=== PATIENT | female | born 1950 | race Two or more races ===

== ENCOUNTER 2017-01-24 02:54 | Emergency (ER) | payer OTHER ==
--- NOTE | 2017-01-24 02:59 | EDPHY ---
H & P Time Seen by Provider: 01/24/17 02:58 HPI/ROS: CHIEF COMPLAINT: vomiting since 7:00 p.m. anorexia since 4:00 p.m. HISTORY OF PRESENT ILLNESS: this is a 66-year-old female with known alter his colitis and several years status post cholecystectomy. She was feeling well earlier today at around 11 when she had lunch. She had no known exposure and was feeling well. By 4 pm, her typical time for the evening meal, she felt unwell and had anorexia thereby did not eat. Beginning around 7:00 p.m. she has had 5 episodes of emesis. This is nonbloody or bilious. In fact she gets some relief from the pressure ceiling that she would have the epigastrium with vomiting. Per se there has been no abdominal pain. She is able to walk well without any difficulty nor she is hunched over. There is no sensitivity to the bumps in the road. She is unaware of any fever. There has been no chills or dysuria frequency or flank pain. Travel: None Others: None Antibiotics: None Bad Food: None Bad Water: None Recent Surgery: None REVIEW OF SYSTEMS: Constitutional: No fever, no chills. Eyes: No discharge ENT: No sore throat. Cardiovascular: No chest pain, no palpitations. Respiratory: No cough, shortness of breath, or wheezing. Gastrointestinal: No abdominal pain. Genitourinary: No hematuria or frequency. Musculoskeletal: No back pain. Skin: No rashes. Neurological: No headache. 10 point ROS otherwise negative Source: Patient - Medical/Surgical History PMH: General Appearance: Alert, mild distress as she feels quite worse when he laid down for the exam in addition she has poor eye contact.. Afebrile. Normal phonation. No respiratory distress. At triage are temperature is 37-2. My exam she feels a little warm to the touch. I was able to get a temperature of 37.7, p.o. Eyes: Pupils equal and round no pallor or injection. No icterus ENT, Mouth: Mucous membranes dry. Pharynx without erythema or exudate. TM Clear. Neck: No adenopathy. Supple. No JVD. Trachea in midline. Respiratory: There are no retractions, lungs are clear to auscultation. Chest wall: Nontender to palpation. No crepitus. Cardiovascular: Regular rate and rhythm, cleared 1/6 holosystolic murmur heard best at the upper left sternal border Abdomen: Soft, with some trace tenderness in the right lower quadrant that is not reproducible, no masses, bowel sounds normal. Neurological: Ox3. No motor weakness. Sensation intact. Gait nl. Skin: Warm and dry, no rashes. Musculoskeletal: No joint swelling. Extremities: No edema. Psychiatric: Normal affect. Patient is oriented X 3 Hx Asthma: No Hx Chronic Respiratory Disease: No Hx Diabetes: No Hx Cardiac Disease: Yes Hx Renal Disease: No Hx Cirrhosis: No Hx Alcoholism: No Hx HIV/AIDS: No Hx Splenectomy or Spleen Trauma: No Other PMH: Ulcerative colitis. Cholecystectomy. PCP Lexie Marcial - Family History Significant Family History: No pertinent family hx - Social History Smoking Status: Never smoked Alcohol Use: None Drug Use: None Constitutional: Initial Vital Signs Temperature (C) 37.2 C 01/24/17 03:01 Heart Rate 94 01/24/17 03:01 Respiratory Rate 18 01/24/17 03:01 Blood Pressure 176/88 H 01/24/17 03:01 O2 Sat (%) 93 01/24/17 03:01 O2 Delivery Mode Room Air Allergies/Adverse Reactions: Penicillins Allergy (Intermediate, Verified 01/24/17 03:04) Abdominal Pain Sulfa (Sulfonamide Antibiotics) Allergy (Intermediate, Verified 01/24/17 03:04) Abdominal Pain Home Medications: Medication Instructions Recorded Losartan Potassium 01/24/17 Medical Decision Making ED Course/Re-evaluation: After the initial evaluation we initiated IV fluids with the plan for 2 L for volume depletion. She was also given 8 mg of IV Zofran. She felt quite a bit better. I had a chance re-examine her at the 1.5 L enedina as follows: Abdomen: Soft, no tenderness whatsoever. She is having a bit of a cough and clearing her throat at this point in time and expresses no abdominal pain with such. Furthermore she is much more animated and jovial, stating that she feels much better. We had discussion regarding potential contagion as at this point in time appears to be norovirus. Thereby I would suspect that she is high contagious affect recommended that she keep home today, and has a has 2 bathroom the household use only 1 for the others so as to avoid transmission. Furthermore she has expected recovery in the next 24-36 hours. Failing that she should return for reexamination Differential Diagnosis: Differential diagnosis includes, but is not limited to: Gastroenteritis, dehydration, diverticulitis, hepatitis, pancreatitis, kidney stones, ureterolithiasis, appendicitis, gastritis, mesenteric adenitis, food poisoning, bacterial dysentery. - Data Points Medications Given: Discontinued Medications Sodium Chloride (Ns) 1,000 mls @ 0 mls/hr IV EDNOW ONE; Wide Open PRN Reason: Protocol Stop: 01/24/17 03:18 Last Admin: 01/24/17 04:02 Dose: 1,000 mls Sodium Chloride (Ns) 1,000 mls @ 0 mls/hr IV EDNOW ONE; As Directed PRN Reason: Protocol Stop: 01/24/17 03:16 Last Admin: 01/24/17 03:24 Dose: 1,000 mls Ondansetron HCl (Zofran) 8 mg IVP EDNOW ONE Stop: 01/24/17 03:08 Last Admin: 01/24/17 03:24 Dose: 8 mg Departure - Departure Disposition: Home, Routine, Self-Care Clinical Impression: Acute gastroenteritis, [place] virus enteritis Condition: Good Instructions: Dehydration (ED), Acute Nausea and Vomiting (ED) Additional Instructions: For the next 12 hours it is reasonable to take clear liquids. However beginning this evening it is prudent to advance her diet slowly over the ensuing 24 hours. To the day today he may require additional doses Zofran, thus the to go home pack. However, by this evening you should not be needing any more Zofran and if so, then he should return to the ER for further evaluation. At no point she develops any abdominal pain. If so, again, he should return to the ER.
[2017-01-24 03:05] VITALS: RESP 18
[2017-01-24] MEDS ORDERED: ONDANSETRON 4 MG/2 ML VIAL IVP ONE (03:07)
[2017-01-24] MEDS ORDERED: NS 1,000 ML IV ONE ×2 (03:15→03:17)
[2017-01-24 03:31] VITALS: TEMP 99.9
[2017-01-24 05:17] VITALS: BP 159/70; PULSE 90; O2SAT 93
[2017-01-24] MEDS ORDERED: ONDANSETRON 4MG PREPACK#2 BTL TAKEHOME ONE (05:17)
== END 2017-01-24 06:00 | disposition home or self-care (01) ==
LOC: CED 02:54
DX: A08.11 Acute gastroenteropathy due to Norwalk agent (principal); E86.9 Volume depletion, unspecified
CPT/HCPCS: 96374; J2405

== ENCOUNTER 2017-08-19 17:20 | Emergency (ER) | payer OTHER ==
[2017-08-19] MEDS ORDERED: PROPARACAINE 0.5% 15 ML OPHT DROP OP ONE (17:24)
[2017-08-19 17:38] VITALS: BP 161/62
--- NOTE | 2017-08-19 17:47 | EDPHY ---
H & P Time Seen by Provider: 08/19/17 17:36 HPI/ROS: CHIEF COMPLAINT: Foreign body sensation right eye HISTORY OF PRESENT ILLNESS: Patient was outside this afternoon in the wind blew something in her right eye, she feels a foreign body sensation superior and lateral to the pupil. No discharge from the eye, no severe eye pain REVIEW OF SYSTEMS: Slight blurriness decrease in vision PAST MEDICAL HISTORY: Ulcerative colitis, cholecystectomy Social history: Nonsmoker General Appearance: Alert, no distress. Visual acuity: noted from nursing notes. 20/40 right, 20/20 left, 20/20 both. Lids and Lashes: No edema, no stye, no erythema. Conjunctivae: Not injected, no exudate. Sclera: No subconjunctival hemorrhage, no icterus. Pupils: Equal and round, normally reactive. Corneas: Right examined with fluoroscein, uptake seen with slitlamp superior to the pupil 1-2 mm abrasion. Negative Alyson test with fluoroscein. No foreign body on surface of cornea. Anterior chamber: normal, no hyphema or hypopyon. External: No proptosis, no periorbital swelling or redness or tenderness. Extraocular motion intact. Emergency Department course/MDM: Patient does not have evidence of globe perforation or corneal ulcer or foreign body on the surface. 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 Abrasion seen on the right side. Symptoms resolved with proparacaine eyedrops applied. Smoking Status: Never smoked Constitutional: Initial Vital Signs Temperature (C) 36.6 C 08/19/17 17:36 Heart Rate 67 08/19/17 17:36 Respiratory Rate 18 08/19/17 17:36 Blood Pressure 161/62 H 08/19/17 17:36 O2 Sat (%) 96 08/19/17 17:36 O2 Delivery Mode Room Air Allergies/Adverse Reactions: Penicillins Allergy (Intermediate, Verified 01/24/17 03:04) Abdominal Pain Sulfa (Sulfonamide Antibiotics) Allergy (Intermediate, Verified 01/24/17 03:04) Abdominal Pain Home Medications: Medication Instructions Recorded Losartan Potassium 01/24/17 Tobramycin 0.3% [Tobrex 0.3% opht 1 drops Q4 3 Days #1 opht.btl 08/19/17 drops (*)] MDM/Departure - MDM Medications Given: Discontinued Medications Proparacaine HCl (Alcaine 0.5%) 1 drops OP EDNOW ONE Stop: 08/19/17 17:25 Last Admin: 08/19/17 17:45 Dose: 1 btl - Depart Disposition: Home, Routine, Self-Care Clinical Impression: Corneal abrasion, right Qualifiers: Encounter type: initial encounter Qualified Code(s): S05.01XA - Injury of conjunctiva and corneal abrasion without foreign body, right eye, initial encounter Condition: Good Instructions: Corneal Abrasion (ED) Additional Instructions: Please follow-up with your eye doctor in 48 hr check for healing. Return to emergency or see eye doctor immediately for any increase in eye pain, drainage from the eye, or any decrease in vision. Prescriptions: Tobramycin 0.3% [Tobrex 0.3% opht drops (*)] 1 drops Q4 3 Days #1 opht.btl Referrals: TIGRE ANTOINE [Primary Care Provider] - As per Instructions Davi Sousa MD [Medical Doctor] - 2-3 days, call for appt.
== END 2017-08-19 17:54 | disposition home or self-care (01) ==
LOC: CED 17:20
DX: S05.01XA Injury of conjunctiva and corneal abrasion without foreign body, right eye, initial encounter (principal); X58.XXXA Exposure to other specified factors, initial encounter

== ENCOUNTER → 2017-09-15 | Outpatient (CLI) | payer OTHER | LOC: CIMAGING 10:38 | PROVIDERS: ATTEND Family Medicine | DX: Z12.31 Encounter for screening mammogram for malignant neoplasm of breast (principal) ==

== ENCOUNTER 2018-04-15 13:54 | Emergency (ER) | payer OTHER ==
[2018-04-15] MEDS ORDERED: RANITIDINE 50 MG/2 ML VIAL IVP ONE (14:06)
[2018-04-15] MEDS ORDERED: NS 500 ML IV ONE (14:06)
[2018-04-15] MEDS ORDERED: methylPREDNISolone SOD SUCC 125 MG/2 ML VIAL IVP ONE (14:06)
--- NOTE | 2018-04-15 14:29 | EDPHY ---
H & P Smoking Status: Never smoked Time Seen by Provider: 04/15/18 14:06 HPI/ROS: HPI Possible allergic reaction. 67-year-old female by private vehicle. This patient reports that she ate a prepackaged TV dinner which consisted of lemon grass chicken that had some saffron in it. She reports that about 0.5 hr after she ate this she started feeling a sensation of lightheadedness and tingling/numbness around her lips and nose and tongue as well as a sensation of mild swelling to these areas. She is feeling better now. But states that the sensations come on in waves. She denies any voice changes. No difficulty breathing. She does complain of having a very dry mouth and a sensation of dryness in her throat. No chest pain. 2:30 p.m., the patient's is now in the room. She states that she took a cannabinoid product which she describes as a liquid which she got online with lunch at approximately 12:30 p.m.. She reports this is a new bottle of this substance. She reports that she has had it in the past and has not had this reaction. ROS: Constitutional: No fever, no chills. As above. Eyes: No discharge. No changes in vision. ENT: No sore throat. No nasal congestion or rhinorrhea. As above. Respiratory: No cough. No shortness of breath. Cardiac: No chest pain, no palpitations. Gastrointestinal: No abdominal pain, no vomiting, no diarrhea. Genitourinary: No hematuria. No dysuria or increased frequency with urination. Musculoskeletal: No back pain. No neck pain. No myalgias or arthralgias. Skin: No rashes. Neurological: No headache. No focal weakness or altered sensation except noted. Past medical history: Ulcerative colitis, cholecystectomy, hypertension. She does take losartan. Her primary care physician is Dr. Yesenia Marcial. Social history: Nonsmoker. Denies alcohol. Here by herself. Physical Exam: General Appearance: Alert, pleasant, jovial, she is not in distress. This patient is responding to questions appropriately and in full sentences. This patient appears well-hydrated and well-nourished. Eyes: Pupils equal and round no pallor or injection. No lid edema, erythema or injection. ENT, Mouth: Mucous membranes are moist. The pharyngeal tissues are unremarkable. No edema or swelling. No asymmetry suggestive of abscess. No erythema or exudates. No stridor on auscultation of her neck. No voice changes. No appreciable swelling noted of the lips, and tongue. No facial swelling noted. Respiratory: There are no retractions, lungs are clear to auscultation with good air movement bilaterally. No wheezing. No tachypnea. Cardiovascular: Regular rate and rhythm. No murmur. Neurological: Motor sensory function is grossly intact. Cranial nerves are normal. Gait is normal. Skin: Warm and dry, no rashes. Musculoskeletal: Neck is supple and nontender. Extremities are symmetrical. All joints range without pain or impingement. Psychiatric: No agitation. No depression. Database: EKG: EKG time is 2:27 p.m.; EKG shows a narrow complex normal sinus rhythm with a ventricular rate of 97. The [place], QRS, QT intervals are within normal limits. There are no ST-T wave changes indicative of ischemic or injury pattern. No evidence of right heart strain. Interpreted by me. Imaging: Procedures: Emergency department course: She was hypertensive in triage. Mildly tachypneic. Vital signs are otherwise normal. Her presentation and history are more consistent with an allergic reaction. On re-evaluation at 2:25 p.m. Her blood pressure is 182/71. Pulse oximetry 98% on room air. IV was established. EKG obtained. She was given 50 mg of ranitidine and 125 mg of IV Solu-Medrol. 2:30 p.m., the patient's is now in the room. She states that she took a cannabinoid product which she describes as a liquid mixed with apple cider vinegar and redding juice which she got online with lunch at approximately 12:30 p.m.. She reports this is a new bottle of this substance. She reports that she has had it in the past, most recently in March, and has not had this reaction. My thought now is that her presentation is more consistent with a cannabinoid product reaction, considering her dry mouth and anxiety etc. 3:00 p.m., we are awaiting her to return with this cannabinoid product that she took. She is currently resting comfortably. Care was turned over to Dr. Paris Hidalgo at this time. Differential Diagnosis: The differential diagnosis on this patient includes but is not limited to allergic reaction, panic attack reaction to cannabinoid product. CVA, acute coronary syndrome unlikely. This represents a partial list of diagnoses considered. These considerations are based on history, physical exam, past history, reassessment and diagnostic testing. (Fercho Ingram) Constitutional: Initial Vital Signs Temperature (C) 36.6 C 04/15/18 14:01 Heart Rate 96 04/15/18 14:01 Respiratory Rate 25 H 04/15/18 14:01 Blood Pressure 194/72 H 04/15/18 14:01 O2 Sat (%) 98 04/15/18 14:01 O2 Delivery Mode Room Air O2 (L/minute) 2 Allergies/Adverse Reactions: Penicillins Allergy (Intermediate, Verified 04/15/18 14:01) Abdominal Pain Sulfa (Sulfonamide Antibiotics) Allergy (Intermediate, Verified 04/15/18 14:01) Abdominal Pain Home Medications: Medication Instructions Recorded Losartan Potassium 01/24/17 Medical Decision Making ED Course/Re-evaluation: Accepted care of patient at end of Dr. Ingram's shift. Plan is for period of observation to see if symptoms resolve. Current working diagnosis is reaction to CBD oil. Less likely allergic reaction. 3:30 p.m. re-evaluated patient, taking p.o., no current complaints, heart rate 89. 4:05 p.m. re-evaluation, patient feels"flu-like"flu swab obtained and is negative. 4:45 pm patient ambulatory with steady gait without new complaints. States she feels better and comfortable with going home. Return precautions discussed in detail. Also recommended follow-up with primary care physician next week for blood pressure recheck as has been consistently high in the emergency department. Patient voices understanding. Stable for discharge. (Aracely Hidalgo) - Data Points Laboratory Results: 04/15/18 04/15/18 04/15/18 15:03 14:41 14:23 POC Hgb 13.9 gm/dL gm/dL (12.6-16.3) POC Hct 41 % % (38-47) POC Sodium 138 mEq/L mEq/L 142 mEq/L mEq/L (135-145) (135-145) POC Potassium 3.3 mEq/L mEq/L 3.0 mEq/L L mEq/L (3.3-5.0) (3.3-5.0) POC Chloride 102 mEq/L mEq/L 100.0 mEq/L mEq/L (97-110) (97-110) POC Total CO2 24 mEq/L mEq/L (22-31) POC BUN 17 mg/dL mg/dL 14 mg/dL mg/dL (7-23) (7-23) POC Creatinine 0.7 mg/dL mg/dL 0.8 mg/dL mg/dL (0.6-1.0) (0.6-1.0) POC Glucose 220 mg/dL H mg/dL 211 mg/dL H mg/dL (70-100) (70-100) POC Calcium 9.7 mg/dL mg/dL (8.5-10.4) POC Troponin I 0.00 ng/mL ng/mL (0.00-0.08) Medications Given: Discontinued Medications Sodium Chloride (Ns) 500 mls @ 0 mls/hr IV ONCE ONE; Wide Open PRN Reason: Protocol Stop: 04/15/18 14:07 Last Admin: 04/15/18 14:23 Dose: 500 mls Methylprednisolone Sodium Succinate (Solu-Medrol) 125 mg IVP EDNOW ONE Stop: 04/15/18 14:07 Last Admin: 04/15/18 14:21 Dose: 125 mg Ranitidine HCl (Zantac) 50 mg IVP EDNOW ONE Stop: 04/15/18 14:07 Last Admin: 04/15/18 14:23 Dose: 50 mg Point of Care Test Results: CBC CBC Collection Date 04/15/18 CBC Collection Time 14:22 WBC 9.9 RBC 4.11 HGB 13.2 HCT 38.8 PLT 258 Neut # 4.5 Neut 46.0 LYMPH # 4.7 LYMPH 47.4 Other WBC # 0.7 Other WBC 6.6 MCV 94.4 Chemistry 04/15/18 04/15/18 04/15/18 15:03 14:41 14:23 POC Sodium 138 mEq/L mEq/L 142 mEq/L mEq/L (135-145) (135-145) POC Potassium 3.3 mEq/L mEq/L 3.0 mEq/L L mEq/L (3.3-5.0) (3.3-5.0) POC Chloride 102 mEq/L mEq/L 100.0 mEq/L mEq/L (97-110) (97-110) POC Total CO2 24 mEq/L mEq/L (22-31) POC BUN 17 mg/dL mg/dL 14 mg/dL mg/dL (7-23) (7-23) POC Creatinine 0.7 mg/dL mg/dL 0.8 mg/dL mg/dL (0.6-1.0) (0.6-1.0) POC Glucose 220 mg/dL H mg/dL 211 mg/dL H mg/dL (70-100) (70-100) POC Calcium 9.7 mg/dL mg/dL (8.5-10.4) POC Troponin I 0.00 ng/mL ng/mL (0.00-0.08) ISTAT H&H 04/15/18 15:03 POC Hgb 13.9 gm/dL gm/dL (12.6-16.3) POC Hct 41 % % (38-47) Influenza PCR Flu Nasal Swab Collection Date 04/15/18 Flu Nasal Swab Collection Time 16:15 Influenza A Result Not Detected Influenza B Result Not Detected Departure - Departure Disposition: Home, Routine, Self-Care Clinical Impression: Allergic reaction Qualifiers: Encounter type: initial encounter Qualified Code(s): T78.40XA - Allergy, unspecified, initial encounter Hypertension Qualifiers: Hypertension type: essential hypertension Qualified Code(s): I10 - Essential ( primary) hypertension Condition: Good Instructions: General Allergic Reaction (ED) Additional Instructions: Read and follow provided instructions. Follow-up with your primary care physician in 7 days for re-evaluation of your blood pressure. Sooner if new concerns. Take medication as prescribed. Return to the emergency department for worsening symptoms or other serious concerns. Referrals: TIGRE ANTOINE [Primary Care Provider] - As per Instructions
[2018-04-15 16:34] VITALS: BP 178/64
--- NOTE | 2018-04-17 15:18 | CPEKG ---
Test Reason : OPEN Blood Pressure : / mmHG Vent. Rate : 000 BPM Atrial Rate : 000 BPM P-R Int : 000 ms QRS Dur : 000 ms QT Int : 000 ms P-R-T Axes : 000 000 000 degrees QTc Int : 000 ms Confirmed by Fercho Ingram ([id number]) on 04/17/2018 3:18:43 PM Referred By: Confirmed By:Fercho Ingram
== END 2018-04-15 17:02 | disposition home or self-care (01) ==
LOC: CED 13:54
DX: I10 Essential (primary) hypertension (principal); R20.2 Paresthesia of skin; T78.1XXA Other adverse food reactions, not elsewhere classified, initial encounter; E86.9 Volume depletion, unspecified
CPT/HCPCS: 80048-PO; 82435-PO; 82565-PO; 82947-PO; 84132-PO; 84295-PO; 84484-PO; 84520-PO; 85014-PO; 96374; J2780; J2930